=== PATIENT | female | born 1960 | race Caucasian/White ===

== ENCOUNTER → 2018-01-14 07:57 | Outpatient (CLI) | payer OTHER, SELFPAY ==
--- NOTE | 2018-01-14 08:00 | ECHOD_ITS ---
Reason For Study: PALPITATIONS Procedure This was a 2D Doppler, Color Flow transthoracic echocardiogram. The exam was of poor technical quality due to previous breast augmentation procedure. The study was technically difficult. Exam performed in department. Left Ventricle Normal LV size. Left ventricular systolic function is normal. The estimated ejection fraction is 60 %. Normal diastology for age. No regional wall motion abnormalities noted. Right Ventricle Normal RV size. Normal systolic function. Atria The left atrium is mildly enlarged. Normal right atrium. No doppler evidence for ASD. Mitral Valve There is no mitral annular calcification. Normal mitral valve. Mild (1+) mitral valve insufficiency. Tricuspid Valve Normal tricuspid valve. Trivial tricuspid valve insufficiency. Unable to estimate RV systolic pressure/pulmonary artery pressure due to technically difficult study. Aortic Valve The aortic valve is not well visualized. Pulmonic Valve The pulmonic valve is not well visualized. Great Vessels Normal sized aortic root. Pericardium/Pleural No pericardial effusion. MMode/2D Measurements & Calculations LVIDd: 4.9 cm IVSd: 0.73 cm Ao root diam: 2.9 cm LVIDs: 3.3 cm LVPWd: 0.90 cm LA dimension: 3.4 cm RVDd: 2.5 cm FS: 33.2 % LAV(MOD-bp): 49.7 ml LA A4 area: 16.2 cm2 RA A4 area: 10.9 cm2 LAV(MOD-bp) Indexed: 27.3 ml/m2 LAV(MOD-sp2): 49.3 ml LAV(MOD-sp4): 42.8 ml Time Measurements MV dec time: 0.24 sec Doppler Measurements & Calculations MV E max alli: 74.0 cm/sec Lat Peak E' Alli: 11.2 cm/sec Med Peak E' Alli: 9.6 cm/sec MV A max alli: 57.8 cm/sec E/E' lat: 6.6 E/E' med: 7.7 MV E/A: 1.3 Ao V2 max: 108.0 cm/sec LV V1 max: 85.8 cm/sec PA V2 max: 87.5 cm/sec Ao max P.7 mmHg LV V1 max P.9 mmHg PI end-d alli: 77.2 cm/sec Interpretation Summary The study was technically difficult. Left ventricular systolic function is normal. The estimated ejection fraction is 60 %. The left atrium is mildly enlarged. Mild (1+) mitral valve insufficiency. Trivial tricuspid valve insufficiency. Unable to estimate RV systolic pressure/pulmonary artery pressure due to technically difficult study. Ordering Physician: Arely Peter Referring Physician: Arely Peter Performed By: Shawnee Scales, ROSA ISELA, RVT
== END ==
PROVIDERS: Family Provider Internal Medicine; PCP Internal Medicine; Visit Provider Internal Medicine
DX: R00.2 Palpitations (principal)
CPT/HCPCS: 93306

== ENCOUNTER → 2019-06-27 16:00 | Outpatient (CLI) | payer OTHER, SELFPAY ==
--- NOTE | 2019-06-27 16:05 | BI_ITS ---
MAMMOGRAPHY - BILATERAL SCREENING REASON FOR EXAM: Female, 59 years old. Routine annual screening examination. PERTINENT HISTORY: Mother with breast cancer. Bilateral breast implants. TECHNIQUE: Digital bilateral breast philip (3D mammographic acquisition) in the CC and MLO projections. 2-D mediolateral oblique (MLO) and craniocaudad (CC) views of both breasts were obtained. CAD: Full Field Digital Mammography with Computer Added Detection was performed. COMPARISON: Comparison is made with prior study dated July 14, 2017. FINDINGS: Breast Composition: There are scattered areas of fibroglandular density. There are no dominant masses or suspicious calcifications. Stable appearance of the bilateral breast implants. No other significant abnormalities are identified. There has been no significant change since the prior study. BI/SCREEN MAMM (CAD) W/PHILIP BILAT IMPRESSION: Stable bilateral screening mammogram. Yearly follow-up mammogram recommended. (A) ASSESSMENT CATEGORY: BIRADS Category 2: Benign. A letter regarding these results will be sent to the patient by the facility within 30 days. Approximately 10% of breast cancers are not detected by mammography. A normal mammogram should not delay biopsy of a clinically suspicious abnormality. [id number] Electronically Signed: Tanvir Granado, at 8:32 EST , Service support ,
== END ==
PROVIDERS: Family Provider Internal Medicine; PCP Internal Medicine; Referring Provider Internal Medicine; Visit Provider Internal Medicine
DX: Z12.31 Encounter for screening mammogram for malignant neoplasm of breast (principal)
CPT/HCPCS: 77063; 77067

== ENCOUNTER → 2020-07-11 07:56 | Outpatient (CLI) | payer OTHER, SELFPAY ==
--- NOTE | 2020-07-11 07:58 | BI_ITS ---
MAMMOGRAPHY - BILATERAL SCREENING REASON FOR EXAM: Female, 60 years old. Routine annual screening examination. PERTINENT HISTORY: Mother with breast cancer. Bilateral breast implants. TECHNIQUE: Digital bilateral breast philip (3D mammographic acquisition) in the CC and MLO projections. 2-D mediolateral oblique (MLO) and craniocaudad (CC) views of both breasts were obtained. CAD: Full Field Digital Mammography with Computer Added Detection was performed. COMPARISON: Comparison is made with prior study dated 06/27/2019 and 07/14/2017. FINDINGS: Breast Composition: There are scattered areas of fibroglandular density. There are no dominant masses or suspicious calcifications. Stable benign-appearing bilateral breast implants. No other significant abnormalities are identified. There has been no significant change since the prior study. BI/SCREEN MAMM (CAD) W/PHILIP BILAT IMPRESSION: Stable bilateral screening mammogram. Yearly follow-up mammogram recommended. (A) ASSESSMENT CATEGORY: BIRADS Category 2: Benign. A letter regarding these results will be sent to the patient by the facility within 30 days. Approximately 10% of breast cancers are not detected by mammography. A normal mammogram should not delay biopsy of a clinically suspicious abnormality. [id number] Electronically Signed: Tanvir Granado, at 9:45 EST , Service support ,
== END ==
PROVIDERS: PCP Internal Medicine; Referring Provider Internal Medicine; Visit Provider Internal Medicine
DX: Z12.31 Encounter for screening mammogram for malignant neoplasm of breast (principal); Z80.3 Family history of malignant neoplasm of breast
CPT/HCPCS: 77063; 77067

== ENCOUNTER → 2024-06-21 | Outpatient (CLI) | payer BC, SELFPAY ==
[2024-07-04 09:22] LABS: HPV APTIMA, High Risk Positive (Negative)
== END | disposition home or self-care (01) ==
PROVIDERS: PCP Internal Medicine; Referring Provider Obstetrics & Gynecology; Visit Provider Obstetrics & Gynecology
DX: Z12.4 Encounter for screening for malignant neoplasm of cervix (principal)
CPT/HCPCS: 87624; 88175; G0145

== ENCOUNTER → 2024-07-08 | Outpatient (CLI) | payer BC, SELFPAY ==
--- NOTE | 2024-07-08 10:38 | BD_ITS ---
STUDY: DUAL ENERGY X-RAY ABSORPTIOMETRY / DXA REASON FOR EXAM: Female, 64 years old. Screening for osteoporosis TECHNIQUE: Bone Mineral Density (BMD) measurements of lumbar spine and bilateral hips were obtained. COMPARISON: None. FINDINGS: Lumbar Spine (L1-L4): g/cm2 (1.033) / T-score (-0.1) / Z-score (1.7) Findings are suggestive of normal bone density with a low fracture risk. Left Femur Total: g/cm2 (0.983) / T-score (0.3) / Z-score (1.6) Left Femoral Neck: g/cm2 (0.752) / T-score (-0.9) / Z-score (0.6) Right Femur Total: g/cm2 (0.942) / T-score (0.0) / Z-score (1.2) Right Femoral Neck: g/cm2 (0.721) / T-score (-1.2) / Z-score (0.4) BD/Dexa Bone Density Study IMPRESSION: The patient is considered osteopenic as outlined below according to World Wero Organization (WHO) criteria with a low fracture risk. Reference Information: The T-score is the number of standard deviations above or below the standard which is normal for young adults at their peak bone mineral density. The World Health Organization (WHO) interprets the T-scores as follows: Above -1 Normal bone density Between -1 and -2.5 Osteopenia Equal to / or below -2.5 Osteoporosis As a practical clinical guideline, osteopenia may be graded as follows: Mild -1 through -1.5 Moderate -1.6 through -2.0 Severe -2.1 through -2.4 The Z-score is the number of standard deviations above or below age-matched controls. A Z-score of less than -1.5 would be considered abnormal. References: 1. NIH Osteoporosis and Related Bone Diseases www osteo.org 2. International Society for Clinical Densitometry www iscd.org 3. National Osteoporosis Foundation www nof.org Electronically Signed: Tanvir Granado MD at 11:50 EST ,
== END | disposition home or self-care (01) ==
LOC: OPBD 10:33
PROVIDERS: PCP Internal Medicine; Referring Provider Obstetrics & Gynecology; Visit Provider Obstetrics & Gynecology
DX: Z13.820 Encounter for screening for osteoporosis (principal)
CPT/HCPCS: 77080

== ENCOUNTER → 2024-07-12 | Outpatient (CLI) | payer BC, SELFPAY ==
--- NOTE | 2024-07-12 17:53 | CT_ITS ---
INDICATION: hematuria EXAMINATION: CT ABDOMEN AND PELVIS WITH CONTRAST - CT Abdomen And Pelvis W/ Contrast Injection TECHNIQUE: Helically acquired images were obtained of the abdomen and pelvis following IV contrast. A radiation dose optimization technique was used for this scan. IV Contrast dosage and agent: 100 cc [id number] Oral contrast: None. COMPARISON: None. FINDINGS: LOWER CHEST: Lung bases are clear. No cardiomegaly or pericardial effusion. LIVER: Homogeneous. No focal mass. GALLBLADDER AND BILIARY TREE: No calcified gallstones. No gallbladder distension or wall edema. No intra- or extrahepatic biliary ductal dilation. PANCREAS: No focal cystic or solid mass. SPLEEN: Normal size without focal cystic or solid mass. ADRENAL GLANDS: No nodules. KIDNEYS AND URETERS: Uniform parenchymal enhancement. No masses bilaterally. No hydronephrosis. PERITONEUM: No ascites or free air. BOWEL: Normal appendix. No stomach or bowel distension. No focal inflammatory change. LYMPH NODES: No enlarged mesenteric or retroperitoneal lymph nodes. VESSELS: Aorta is non-dilated. URINARY BLADDER: Mild bladder wall thickening with minimal stranding. REPRODUCTIVE ORGANS: No pelvic masses. ABDOMINAL WALL: Small fat-containing umbilical hernia. BONES: No acute or aggressive abnormality. CT/Abdomen/Pelvis W IV Cont ONLY IMPRESSION: Findings suspicious for cystitis. No other etiology for hematuria demonstrated. Electronically Signed: Nolan Calzada MD at 0:38 EST ,
[2024-07-12 18:19] LABS: CREATININE FINGERSTICK < 1.0 mg/dL (0.55-1.02); EGFR FINGERSTICK > 60.0000 mL/min (>60)
== END | disposition home or self-care (01) ==
PROVIDERS: PCP Internal Medicine; Referring Provider Obstetrics & Gynecology; Visit Provider Obstetrics & Gynecology
DX: Z01.812 Encounter for preprocedural laboratory examination (principal); R31.9 Hematuria, unspecified
CPT/HCPCS: 74177

== ENCOUNTER → 2024-07-19 | Outpatient (CLI) | payer BC, SELFPAY | END | disposition home or self-care (01) | LOC: BWCLAB 13:10 | PROVIDERS: PCP Internal Medicine; Referring Provider Obstetrics & Gynecology; Visit Provider Obstetrics & Gynecology | DX: N39.0 Urinary tract infection, site not specified (principal) | CPT/HCPCS: 87086 ==

== ENCOUNTER → 2024-07-28 | Outpatient (CLI) | payer BC, SELFPAY ==
--- NOTE | 2024-07-28 14:42 | US_ITS ---
STUDY: ULTRASOUND OF THE FEMALE PELVIS - COMPLETE REASON FOR EXAM: Female, 64 years old. bleeding TECHNIQUE: Transvaginal and transabdominal imaging. COMPARISON: None. FINDINGS: The uterus is anteverted and is in a midline position. The uterus measures 5.3 cm. Normal uterine cervix. The endometrium measures 2 mm in thickness, and is hyperechoic. There is no demonstrated endometrial mass. There is no demonstrated myometrial mass. I.U.D. - The patient does not have an I.U.D. There is nonvisualization of the right ovary due to overlying bowel gas. The left ovary is visualized. The left ovary measures 2.3 cm. There is no left ovarian cyst or ovarian mass. There is no visualized left adnexal mass or complex lesion. There is normal arterial and normal venous vascularity. There is no fluid in the cul-de-sac. Urinary bladder volume is (in cc) 497. US/Pelvic w/ Transvaginal IMPRESSION: There are no acute findings. Electronically Signed: Gregg Bella MD at 21:51 EST ,
== END | disposition home or self-care (01) ==
PROVIDERS: PCP Internal Medicine; Referring Provider Obstetrics & Gynecology; Visit Provider Obstetrics & Gynecology
DX: N93.9 Abnormal uterine and vaginal bleeding, unspecified (principal); R31.9 Hematuria, unspecified
CPT/HCPCS: 76830; 76856

== ENCOUNTER → 2024-08-29 | Outpatient (CLI) | payer BC, SELFPAY ==
--- NOTE | 2024-08-29 | CER_PTH ---
PATIENT: ASHLEY HERNANDEZ LOC: [facility]#:[id number] AGE/SX: 64/F ROOM: RE08/29/[address]: Dr. Marley Martinez DO : 1960 BED: DIS: 08/29/2024 SPEC #: [id number] RECD: 08/29/24 16:36 STATUS: CLAUDIA ARNOLD #: [id number] SHAHNAZ: 08/29/24 00:[address]: Marley Martinez DEPT: SURGICAL PATHOLOGY RECD BY: Shellie El ENTERED: 08/30/24 07:40 SP TYPE: CERV OTHR DR: Dr. Arely Peter MD Tissues: A - Endocervical B - Uterine cervix, NOS Procedures: Surgery Specimen Level IV HEADER OPERATION: Colposcopy PRE-OP DIAGNOSIS: ASCUS HPV+ TISSUE SUBMITTED: A- CHARBEL B- 9o'clock cervix MICROSCOPIC DIAGNOSIS A. Endocervical curettings: Scant desquamated benign ecto- and endocervical epithelial cells, negative for dysplasia. B. Cervix, 9o'clock, biopsy: A fragment of ectocervical mucosa with metaplastic changes. Negative for dysplasia. See comment. 08/31/2024 COMMENT B. Results of Immunohistochemistry ([id number]) for surrogate HPV marker (p16) will be reported separately.. MICROSCOPIC DESCRIPTION Slides are reviewed. GROSS DESCRIPTION A. Received in fixative is a metallic brush with adherent minute fragments of dailey-red tissue and labeled with the patient's name and and designated per the requisition as ECC BRUSH. The material is dislodged from the brush and submitted for cell block preparation in one cassette. B. Received in fixative is one container labeled with the patient's name and designated 9o'clock cervix. The specimen consists of one irregular fragment of light dailey soft tissue that measures 0.3 x 0.2 x 0.1 cm. The specimen is totally submitted in one cassette. MESERET. 08/30/2024 TC:5 CPT:62904g1
--- NOTE | 2024-08-29 | IMM_PTH ---
PATIENT: ASHLEY HERNANDEZ LOC: [facility] U#:[id number] AGE/SX: 64/F ROOM: RE08/29/[address]: Dr. Marley Martinez DO : 1960 BED: DIS: 08/29/2024 SPEC #: [id number] RECD: 08/31/24 11:02 STATUS: CLAUDIA CLAYTON #: [id number] SHAHNAZ: 08/29/24 00:[address]: Marley Martinez DEPT: IMMUNOHISTOCHEMISTRY RECD BY: Romario Reyes ENTERED: 08/31/24 11:03 SP TYPE: IMMUNO OTHR DR: Dr. Arely Peter MD Tissues: B - Uterine cervix, NOS Procedures: p16 (initial) KI-67 (add) PHYSICIAN & INSTITUTION [place] [id number] SPECIMEN INFORMATION: Tissue Source: B- 9o'clock Clinical Info: ASCUS PHV+ Specimen Number: [id number] CPT code: 41558,23301 METHODOLOGY: Deparaffinized sections of prefer/formalin-fixed tissue or PAP/DQ stained slides are incubated with monoclonal/polyclonal antibodies/oligonucleotide probes. Localization is made via biotin free immunoperoxidase method. Appropriate controls are performed and reacted as expected. Results on target cell population are indicated in the following table: RESULTS: ANTIBODY / CLONE RESULT Block B P16 (E6H4) positive, focal patchy staining in superficial layer Ki-67 (30-9) positive, low, basal layer only These tests were developed and their performance characteristics determined by [facility]. They may not have been cleared or approved by the U.S. Food and Drug Administration. The FDA has determined that such clearance or approval is not necessary. The above immunohistochemical/dualISH markers are ordered and reviewed by the Pathologist. INTERPRETATION: Eriberto Cervix, 9o'clock, biopsy: Negative for dysplasia. . 09/01/2024
== END | disposition home or self-care (01) ==
LOC: LABSPEC 16:42
PROVIDERS: PCP Internal Medicine; Referring Provider Obstetrics & Gynecology; Visit Provider Obstetrics & Gynecology
DX: R87.610 Atypical squamous cells of undetermined significance on cytologic smear of cervix (ASC-US) (principal)
CPT/HCPCS: 88305; 88341; 88342

== ENCOUNTER → 2025-02-02 | Outpatient (CLI) | payer BC, SELFPAY ==
[2025-02-02 15:05] LABS: SERUM TEARS COLLECTION SPECIMEN PROCESSED
== END | disposition home or self-care (01) ==
LOC: LAB 13:01
PROVIDERS: PCP Internal Medicine; Referring Provider Ophthalmology; Visit Provider Ophthalmology
DX: H04.123 Dry eye syndrome of bilateral lacrimal glands (principal)